=== PATIENT | female | born 1995 | race American Indian/Alaskan Native ===

== ENCOUNTER 2017-03-31 00:19 | Outpatient (CLI) | payer BC, MEDICAID ==
[2017-03-31 00:56] VITALS: BP 128/58
[2017-03-31] MEDS ORDERED: TYLENOL PO ONE (02:16)
[2017-03-31] MEDS ORDERED: LACTATED RINGERS 500 ML IV ONE (02:19)
== END 2017-03-31 02:27 | disposition home or self-care (01) ==
LOC: TRG 00:19
PROVIDERS: ATTEND Obstetrics & Gynecology

== ENCOUNTER 2020-06-10 11:56 | Emergency (ER) | payer SELFPAY ==
[2020-06-10 12:15] VITALS: BP 143/70
== END 2020-06-10 12:30 | disposition left against medical advice (07) ==
LOC: ED 11:56
DX: R11.10 Vomiting, unspecified (principal); Z53.21 Procedure and treatment not carried out due to patient leaving prior to being seen by health care provider